=== PATIENT | male | born 1940 | race Caucasian/White ===

== ENCOUNTER 2016-07-14 13:05 | Emergency (ER) | payer MEDICARE, BC ==
[2016-07-14] MEDS ORDERED: IV NORMAL SALINE 1,000ML 1,000 ML IV ONE (14:30)
[2016-07-14 14:46] LABS: BASO # 0.1 x10^3/uL (0.0-0.2); BASO % 1 % (0-3); EOS # 0.1 x10^3/uL (0.0-0.7); EOS % 1 % (0-3); HEMATOCRIT 46.8 % (39.0-53.0); HEMOGLOBIN 16.3 g/dL (13.0-17.5); LYMPH % 10 % (24-48); MEAN CORPUSCULAR HEMOGLOBIN 32 pg (25-35); MEAN CORPUSCULAR HGB CONC 35 g/dL (31-37); MEAN CORPUSCULAR VOLUME 92 fL (79-100); MONO # 1.2 x10^3/uL (0.0-1.1); MONO % 11 % (0-9); NEUT % 78 % (31-73); PLATELET COUNT 151 x10^3/uL (140-400); RED BLOOD COUNT 5.07 x10^6/uL (4.30-5.70); RED CELL DISTRIBUTION WIDTH 14.5 % (11.5-14.5); WHITE BLOOD COUNT 10.3 x10^3/uL (4.0-11.0)
[2016-07-14 15:04] LABS: BILIRUBIN,URINE NEG (NEG); CLARITY,URINE CLEAR; COLOR,URINE YELLOW; GLUCOSE,URINE NEG (NEG); NITRITE,URINE NEG (NEG); UROBILINOGEN,URINE 1 mg/dL (0.2 mg/dL)
[2016-07-14 15:05] LABS: BACTERIA,URINE 0 /HPF (0-FEW); SQUAMOUS EPITHELIAL CELL,UR MOD /LPF
[2016-07-14 15:09] LABS: ALBUMIN 3.6 g/dL (3.4-5.0); ALBUMIN/GLOBULIN RATIO 1.2 (1.0-1.7); CALCIUM 8.6 mg/dL (8.5-10.1); GFR 72.5; TOTAL PROTEIN 6.7 g/dL (6.4-8.2)
[2016-07-14 15:10] LABS: TOTAL BILIRUBIN 3.4 mg/dL (0.2-1.0)
[2016-07-14] MEDS ORDERED: IOHEXOL 300 MG/ML 75 ML VIAL. IV ONE ×2 (15:10)
--- NOTE | 2016-07-14 15:59 | RAD ---
Indication: Umbilical pain. Axial imaging through the abdomen and pelvis was performed after the administration of intravenous contrast. No prior studies are available for comparison. The lung bases are clear. The liver contains a tiny low density in the right lobe, too small to characterize but likely a small cyst. No other liver mass is identified. The gallbladder contains a tiny stone. The pancreas and spleen are unremarkable. No adrenal mass is detected. The right kidney demonstrates a rounded hyperdense mass in the lower pole measuring 2.5 cm in diameter. Hounsfield units are approximately 99 suggestive of a solid lesion. There is a tiny nonobstructing calculus in the lower pole the right kidney. There is also a small low density in the mid right kidney, perhaps a cyst. The left kidney is unremarkable. Aorta is calcified but nonaneurysmal. There is a minimally prominent lymph node in the aortocaval region measuring 1.5 cm at the level of the renal ganesh. Imaging through the pelvis does show dilatation of the appendix which also appears thick-walled. There is mild periappendiceal inflammation and findings are consistent with acute appendicitis. No abscess formation is identified. No bowel obstruction is seen. There is no free air. There is sigmoid diverticulosis but no evidence of acute diverticulitis. Postop changes bilateral hips are noted. Impression: 1. Findings consistent with acute appendicitis. No abscess formation or bowel obstruction is identified. 2. 2.5 cm solid right lower pole renal mass, suspicious for renal cell carcinoma. 3. Cholelithiasis.
[2016-07-14] MEDS ORDERED: IV NORMAL SALINE 50ML 50 ML ONE (16:41)
[2016-07-14] MEDS ORDERED: PIPERACILLIN/TAZOBACTAM 3.375 GM VIAL IV ONE (16:41)
[2016-07-14] MEDS ORDERED: PIPERACILLIN/TAZOBACTAM 3.375 GM in IV NORMAL SALINE 50ML 50 ML IV ONE (17:00)
[2016-07-14 17:45] VITALS: BP 155/70
--- NOTE | 2016-07-15 14:03 | ED.ADGEN ---
Past History Past Medical History: A-Fib, High Cholesterol, Hypertension Past Surgical History: Other Alcohol Use: None Drug Use: None Adult General Chief Complaint Chief Complaint abdominal pain HPI HPI Patient is a 75 year old M who presents with abdominal pain. Pt states has had lower abdominal pain for approx 15 hours, no vomiting and may have felt Nauseated but denies N now. Pt denies diarrhea, no dysuria, no hematuria. no chest pain, no dyspnea Review of Systems Review of Systems Constitutional: Denies fever or chills Eyes: Denies change in visual acuity, redness, or eye pain HENT: Denies nasal congestion or sore throat Respiratory: Denies cough or shortness of breath Cardiovascular: No additional information not addressed in HPI [ GI: abdominal pain : Denies dysuria or hematuria Musculoskeletal: Denies back pain or joint pain Integument: Denies rash or skin lesions Neurologic: Denies headache, focal weakness or sensory changes Current Medications Current Medications Current Medications Medications (Trade) Dose Ordered Sig/Mohinder Start Time Stop Time Status Last Admin Dose Admin Iohexol (Omnipaque 300 Mg/ml) 75 ml 1X ONCE 07/14/16 15:10 07/14/16 15:11 DC Piperacillin Sod/ Tazobactam Sod (Zosyn) 3.375 gm STK-MED ONCE 07/14/16 16:41 07/14/16 16:42 DC Piperacillin Sod/ Tazobactam Sod 3.375 gm/Sodium Chloride 50 ml @ 100 mls/hr 1X ONCE 07/14/16 17:00 07/14/16 17:29 DC 07/14/16 16:48 100 MLS/HR Sodium Chloride 50 ml @ As Directed STK-MED ONCE 07/14/16 16:41 07/14/16 16:42 DC Allergies Allergies Allergies Coded Allergies Type Severity Reaction Last Updated Verified No Known Drug Allergies 07/14/16 No Physical Exam Physical Exam Constitutional: Well developed, well nourished, no acute distress, non-toxic appearance. HENT: Normocephalic, atraumatic, bilateral external ears normal, oropharynx moist, no oral exudates, nose normal. Eyes: PERRLA, EOMI, conjunctiva normal, no discharge. Neck: Normal range of motion, no tenderness, supple, no stridor. Cardiovascular:Heart rate regular rhythm, no murmur Lungs & Thorax: Bilateral breath sounds clear to auscultation Abdomen: Bowel sounds normal,soft RLQ tenderness with voluntary guarding no rebound Skin: Warm, dry, no erythema, no rash. Back: No tenderness, no CVA tenderness. Extremities: No tenderness, no cyanosis, no clubbing, ROM intact, no edema. [] Neurologic: Alert and oriented X 3, normal motor function, normal sensory function, no focal deficits noted. [] Psychologic: Affect normal, judgement normal, mood normal. [] Current Patient Data Vital Signs Vital Signs Date Time Temp Pulse Resp B/P (MAP) Pulse Ox O2 Delivery O2 Flow Rate FiO2 07/14/16 17:45 98.0 62 22 155/70 (98) 94 07/14/16 13:05 Room Air vital signs reviewed and stable Lab Results Laboratory Tests Test 07/14/16 14:33 07/14/16 14:42 White Blood Count 10.3 x10^3/uL (4.0-11.0) Red Blood Count 5.07 x10^6/uL (4.30-5.70) Hemoglobin 16.3 g/dL (13.0-17.5) Hematocrit 46.8 % (39.0-53.0) Mean Corpuscular Volume 92 fL (79-100) Mean Corpuscular Hemoglobin 32 pg (25-35) Mean Corpuscular Hemoglobin Concent 35 g/dL (31-37) Red Cell Distribution Width 14.5 % (11.5-14.5) Platelet Count 151 x10^3/uL (140-400) Neutrophils (%) (Auto) 78 % (31-73) H Lymphocytes (%) (Auto) 10 % (24-48) L Monocytes (%) (Auto) 11 % (0-9) H Eosinophils (%) (Auto) 1 % (0-3) Basophils (%) (Auto) 1 % (0-3) Neutrophils # (Auto) 8.0 x10^3uL (1.8-7.7) H Lymphocytes # (Auto) 1.0 x10^3/uL (1.0-4.8) Monocytes # (Auto) 1.2 x10^3/uL (0.0-1.1) H Eosinophils # (Auto) 0.1 x10^3/uL (0.0-0.7) Basophils # (Auto) 0.1 x10^3/uL (0.0-0.2) Sodium Level 138 mmol/L (136-145) Potassium Level 4.0 mmol/L (3.5-5.1) Chloride Level 103 mmol/L (98-107) Carbon Dioxide Level 27 mmol/L (21-32) Anion Gap 8 (6-14) Blood Urea Nitrogen 14 mg/dL (8-26) Creatinine 1.0 mg/dL (0.7-1.3) Estimated GFR (Cockcroft-Gault) 72.5 BUN/Creatinine Ratio 14 (6-20) Glucose Level 104 mg/dL (70-99) H Calcium Level 8.6 mg/dL (8.5-10.1) Total Bilirubin 3.4 mg/dL (0.2-1.0) H Aspartate Amino Transferase (AST) 27 U/L (15-37) Alanine Aminotransferase (ALT) 25 U/L (16-63) Alkaline Phosphatase 76 U/L (46-116) Creatine Kinase 149 U/L (39-308) Creatine Kinase MB (Mass) 1.2 ng/mL (0.0-3.6) Creatine Kinase MB Relative Index 0.8 % (0-4) Troponin I Quantitative 0.018 ng/mL (0-0.055) Total Protein 6.7 g/dL (6.4-8.2) Albumin 3.6 g/dL (3.4-5.0) Albumin/Globulin Ratio 1.2 (1.0-1.7) Urine Collection Type Unknown Urine Color Yellow Urine Clarity Clear Urine pH 6.5 Urine Specific [place] 1.015 Urine Protein Trace (NEG-TRACE) Urine Glucose (UA) Neg mg/dL (NEG) Urine Ketones (Stick) Neg mg/dL (NEG) Urine Blood Neg (NEG) Urine Nitrite Neg (NEG) Urine Bilirubin Neg (NEG) Urine Urobilinogen Dipstick 1 mg/dL (0.2 mg/dL) Urine Leukocyte Esterase Neg (NEG) Urine RBC 1-2 /HPF (0-2) Urine WBC 1-4 /HPF (0-4) Urine Squamous Epithelial Cells Mod /LPF Urine Bacteria 0 /HPF (0-FEW) Urine Mucus Marked /LPF EKG EKG [] Radiology/Procedures Radiology/Procedures IMAGING REPORT Signed PATIENT: BANDAR HAINES ACCOUNT: [id number] : 1940 LOCATION: ER AGE: 75 SEX: M EXAM STATUS: REG ER ORD. PHYSICIAN: NILA COSTA MD REASON: rlq abdominal pain PROCEDURE: CT ABD PELV W/ IV CONTRST ONLY Indication: Umbilical pain. Axial imaging through the abdomen and pelvis was performed after the administration of intravenous contrast. No prior studies are available for comparison. The lung bases are clear. The liver contains a tiny low density in the right lobe, too small to characterize but likely a small cyst. No other liver mass is identified. The gallbladder contains a tiny stone. The pancreas and spleen are unremarkable. No adrenal mass is detected. The right kidney demonstrates a rounded hyperdense mass in the lower pole measuring 2.5 cm in diameter. Hounsfield units are approximately 99 suggestive of a solid lesion. There is a tiny nonobstructing calculus in the lower pole the right kidney. There is also a small low density in the mid right kidney, perhaps a cyst. The left kidney is unremarkable. Aorta is calcified but nonaneurysmal. There is a minimally prominent lymph node in the aortocaval region measuring 1.5 cm at the level of the renal ganesh. Imaging through the pelvis does show dilatation of the appendix which also appears thick-walled. There is mild periappendiceal inflammation and findings are consistent with acute appendicitis. No abscess formation is identified. No bowel obstruction is seen. There is no free air. There is sigmoid diverticulosis but no evidence of acute diverticulitis. Postop changes bilateral hips are noted. Impression: 1. Findings consistent with acute appendicitis. No abscess formation or bowel obstruction is identified. 2. 2.5 cm solid right lower pole renal mass, suspicious for renal cell carcinoma. 3. Cholelithiasis. DICTATED AND SIGNED BY: DEJAH COON MD DATE: 07/14/16 1550 CC: NILA COSTA MD; NON,STAFF ~ [] Course & Med Decision Making Course & Med Decision Making Pertinent Labs and Imaging studies reviewed. (See chart for details) Pt with normal WBC but left shift and RLQ tenderness CT showing acute appendicitis Pt last dose of xeralto was 545 pm last night Discussed with pt and family results and incidental finding of renal mass Discussed with Surgeon Dr. Hu , pt will have to wait till approx 48 hours for surgery from last dose of xeralto agrees with Zosyn dosing and admit /transfer to [facility] Called internal medicine Dr. Pope who accepts pt for admission and transfer pt medically stable to for transfer Final Impression Final Impression ACUTE APPENDICITIS RENAL MASS[] Problems: Dragon Disclaimer Dragon Disclaimer This electronic medical record was generated, in whole or in part, using a voice recognition dictation system. NILA COSTA MD July 15, 2016 14:03
== END 2016-07-14 18:14 | disposition short-term general hospital (02) ==
LOC: ER 13:05
DX: K35.80 Unspecified acute appendicitis (principal); N28.89 Other specified disorders of kidney and ureter; I10 Essential (primary) hypertension; E78.00 Pure hypercholesterolemia, unspecified; I48.91 Unspecified atrial fibrillation
CPT/HCPCS: 36415; 74177; 80053; 81001; 82553; 84484; 85027; 96361; 96365; 99285; J2543; Q9967; J7030